=== PATIENT | male | born 1930 | race Caucasian/White ===

== ENCOUNTER 2017-12-13 15:53 | Inpatient (IN) | payer MEDICARE ==
[~2017-12-13] VITALS: Ht 175.3 cm; Wt 94.9 kg
[~2017-12-13 15:53] MED LIST: ACETAMINOPHEN500 MG PO; ALER PO; BACTRIM DS TAB1 EACH PO; CARDIZEM CD180 MG PO; CLARITIN10 MG PO; COUMADIN4 MG PO; DILTIAZEM HCL120 MG PO; FINASTERIDE5 MG PO; IRON325 M1 PO; LIPITOR20 MG PO; NAMENDA10 MG PO; VITAMIN B-650 M1 PO; WARFARIN SODIUM6 MG PO
[2017-12-13] MEDS ORDERED: FLOMAX0.4 MG PO (16:11)
--- NOTE | 2017-12-13 18:29 | EKG ---
[facility] [address] [facility] [place] [address] Signed Atrial fibrillation with premature ventricular or aberrantly conducted complexes Left axis deviation Pulmonary disease pattern Abnormal ECG No previous ECGs available Confirmed by ENOC BUTLER MD ([id number]) on 12/13/2017 6:29:07 PM Electronically Signed By: ENOC BUTLER MD 12/13/17 1829 PATIENT NAME: FELIPEZANE PJ Electrocardiogram DATE OF : [birth year] PHYSICIAN: ENOC BUTLER MD REPORT #: [id number] REPORT IS CONFIDENTIAL AND NOT TO BE RELEASED WITHOUT AUTHORIZATION
--- NOTE | 2017-12-13 19:56 | NUR ---
RECEIVED PT TO FLOOR VIA STRETCHER. PT IS DISORIENTED TO TIME, DATE AND PLACE. FACES ASSESSMENT IS 0. CALL LIGHT EDUCATION. ROOM ORIENTATION, BED ALARM IN PLACE.
--- NOTE | 2017-12-13 22:24 | NUR ---
ASSESSMENT COMPLETED. PT ON TELE # 7. HR IRREGULAR. LUNGS HAVE CRACKLES THROUGHOUT. 2+ PITTING EDEMA BILAT LE. PULSE +1 PEDIS AND RADIAL. CAP REFILL <3 SEC. PT HAS GARBLED SPEECH AND IS SLOW TO RESPOND. UNABLE TO ANSWER ALL QUESTIONS. BOWEL TONES ACTIVE. PT IS SL. CALL LIGHT WITHIN REACH. BED ALARM IN PLACE. ASSISTED PT TO STAND AT SIDE OF BED TO USE URINAL. 4L NC IN PLACE. RESPIRATIONS ARW EQUAL AND UNLABORED.
--- NOTE | 2017-12-14 00:12 | NUR ---
PT APPEARS TO BE SLEEPING. RESPIRATIONS EQUAL AND NONLABORED. 4L NC IN PLACE. TELE # 7. IRREGULAR RATE. HR IS 67. CALL LIGHT WITHIN REACH,. BED ALARM IN PLACE.
--- NOTE | 2017-12-14 02:00 | NUR ---
PT APPEARS TO BE SLEEPING. 4L NC IN PLACE. BED ALARM ON, CALL LIGHT WITHIN REACH. RESPIRATIONS EQUAL AND NONLABORED.
--- NOTE | 2017-12-14 02:46 | NUR ---
VITALS AND I&OS DONE AND CHARTED. BEDSIDE TABLE AND CALL LIGHT WITHIN REACH.
--- NOTE | 2017-12-14 04:27 | NUR ---
PT APPEARS TO BE SLEEPING. 4L NC IN PLACE. CALL LIGHT WITHIN REACH. BED ALARM ON. VISIBLE FROM NURSING STATION. HE 70. IRREGULAR HEART RATE.
--- NOTE | 2017-12-14 05:23 | NUR ---
PT CAME TO FLOOR LAST NIGHT. SLEPT THROUGHOUT THE NIGHT. CRACKLES THROUGHOUT. 2L O2. BED ALARM IN PLACE. PT IS CONFUSED. CARDIAC DIET. KNEES BUCKLE AND ARE WEAK. PT STOOD AT SIDE OF BED WITH URINAL. LABS THIS AM.
--- NOTE | 2017-12-14 05:57 | NUR ---
VITALS AND I&OS DONE AND CHARTED. HELPED SARAH TANG GET PT BACK TO BED FROM THE BATHROOM. PT VERY UNSTEADY. BED ALARM PUT ON. CALL LIGHT WITHIN REACH.
--- NOTE | 2017-12-14 06:51 | NUR ---
levaquin given. pt back to bed. had a coughing fit. elevated hob, gave vomitis bag. and tissue. able to cough up ome sputum and spit out. better now.. bed alarm in placve. call light within reach. visible form nursingf station.
--- NOTE | 2017-12-14 08:30 | NUR ---
PT HAS BASELINE DEMENTIA, CONFUSED AND OUT OF BED. RETURNED TO BED AND PLACED TELE LEADS, PLACED BED ALARM ON. PT DENIES SOB, NO DISTRESS. HELPED PT WITH BREAKFAST. PT UNABLE TO USE URINAL INDEPENDENTLY, ABLE TO URINATE WITH ASSIST. WILL CONTINUE TO MONITOR.
--- NOTE | 2017-12-14 10:00 | NUR ---
PT SITTING UP AT SIDE OF BED. PT PLEASANT, BUT UNABLE TO ANSWER QUESTIONS APPROPRIATELY. STATES HE LIVES WITH FAMILY. DOESN'T KNOW OTHER MORE DIRECT QUESTIONS. HAS A CANE IN THE ROOM. STAFF WILL LET ME KNOW WHEN FAMILY ARRIVES.
--- NOTE | 2017-12-14 10:37 | NUR ---
THIS PRODUCE CLERK ENTERED PATIENTS ROOM. PATIENT WAS STANDING IN BATHROOM ALONE, NO LIGHTS ON, OXYGEN TUBING WAS TIED TO BATHROOM DOOR. BED RAILS WERE UP. WHEN ASKED, PATIENT STATES HE TIED THE OXYGEN MASK, AND HE CRAWLED OVER THE BED RAILS BECAUSE HE HAD TO USE THE BATHROOM. PATIENT STATES HE DID NOT KNOW HOW TO CALL FOR HELP. RN NOTIFIED.
--- NOTE | 2017-12-14 11:00 | NUR ---
PT UP AT BEDSIDE AND BED ALARM NOT WORKING, REDIRECTED BACK TO BED. BED ALARM IS NOT WORKING, PLACED PRESSURE ALARM AND PT UP TO CHAIR. BED ALARM CALLED IN TO SERVICE.
--- NOTE | 2017-12-14 12:28 | NUR ---
PT HAS BEEN UP TO THE BATHROOM SEVERAL TIMES THIS MORNING, NOT CALL LIGHT APPROPRIATE. CHAIR ALARM IN PLACE. PT IS CONFUSED AND FORGETFUL. PT CONTINUES TO WEAR OXYGEN. REORIENTED PATIENT SEVERAL TIMES. PT EATING LUNCH INDEPENDENTLY, HR 70'S-80'S PER TELE. WILL CONTINUE TO MONITOR.
--- NOTE | 2017-12-14 12:59 | NUR ---
SPOKE AT LENGTH WITH SON DYLON AND STEFAN. PATIENT LIVES WITH THEM. THEY STATE HE HAS HAD DEMENTIA FOR OVER 6 YEARS AND THE LAST FEW MONTHS HE HAS [place]TON MARKEDLY WORSE. THEY STATE HE STILL KNOWS THEM, BUT CANNOT DO OWN ADL'S OR EVEN AMBULATE SAFELY. THEY HAVE A WALKER AND CANE. THEY STATE THEY ARE READY TO LOOK AT HIM MOVING TO A CARE FACILITY. THEY ARE HOPING TO GET HIM SITUATED SOMEWHERE IN THE [facility]. WE DISCUSSED THAT PATIENT MAY NEED REHAB STAY. THEY WOULD LIKE TO TRY [facility] WHICH IS [facility] FOR THEIR FAMILY. UPDATED DR BUTLER.
--- NOTE | 2017-12-14 14:00 | NUR ---
PT HAS HAD FAMILY AT BEDSIDE OFF AND ON THROUGHOUT THE AFTERNOON. PT HAS CONTINUE TO EXHIBIT CONFUSION, AND WILL GET UP OUT OF THE CHAIR. PT TRIED TO DRESS HIMSELF, AND NURSING STAFF DRESSED AND REORIENTED PATIENT. PT HAS TAKEN MEDICATIONS WITHOUT DIFFICULTY, AND HAS EATEN MEALS APPROPRIATELY. WILL CONTINUE TO MONITOR.
[2017-12-14] MEDS ORDERED: XALATAN2.5 ML OU (15:04)
--- NOTE | 2017-12-14 15:16 | NUR ---
MED REC COMPLETE
--- NOTE | 2017-12-14 15:48 | NUR ---
CLINICALS FAXED TO [facility] [phone]. FAX CONFIRMATION RECEIVED. MESSAGE LEFT FOR SHANT ADMITTING AT [phone].
--- NOTE | 2017-12-14 17:03 | NUR ---
CHANGED TELE BATTERY AND ALSO REMINDED HIM TO PUT HIS OXYGEN BACK ON SITTING IN CHAIR WITH CHAIR ALARM ON
--- NOTE | 2017-12-14 18:44 | NUR ---
PT HAS HAD A DIFFICULT TIME THIS SHIFT WITH CONFUSION AND HAS HAD TO BE REORIENTED SEVERAL TIMES. BED ALARM/CHAIR ALARM IN USE. LUNGS CRACKLES AND DIMINISHED BILATERALLY, AFEBRILE, NO EDEMA. PT HAS ATE WELL TODAY. OUTPUT CONSISTENT, ABLE TO USE URINAL WITH ASSIST. PT HAS REMOVED OXYGEN SEVERAL TIMES THIS SHIFT, SATS STABLE WHEN HE KEEPS IT IN PLACE.
--- NOTE | 2017-12-14 20:00 | NUR ---
RETURNED A CALL TO PATIENT'S GRAND-DAUGHTER SAVANNAH. SAVANNAH HAD BEEN TOLD BY A PREVIOUS VISITOR FROM [facility] THAT THE PATIENT'S HANDS WERE MOTTLED WHEN SHE CAME TO SEE THE PATIENT. THIS RN INFORMED SAVANNAH THAT I HAD JUST SEEN THE PATIENT AND HIS HANDS WERE NOT MOTTLED, HANDS WERE WARM, CAPILLARY REFILL WAS WNL, PATIENT HAD EQUAL [employer] BI DEVELOPER AND WAS FOLLOWING COMMANDS. SAVANNAH INFORMED ME SHE JUST WANTED TO CHECK. GRANDDAUGHTER IS ALSO LOOKING FOR A RESULT ON A CARDIAC ECHO. I INFORMED HER I HAD NOT SEEN A REPORT ON THE PATIENT'S ECHO AT THIS TIME, BUT WOULD LEAVE A NOTE FOR SOMEONE TO TRY AND CALL IF RESULTS CAME BACK. PATIENT CURRENTLY RESTING ON HIS RIGHT SIDE EYES CLOSED RESPIRATIONS EVEN AND REGULAR.
--- NOTE | 2017-12-14 21:36 | NUR ---
VITALS DONE AND CHARTED. BEDSIDE TABLE AND CALL LIGHT WITHIN REACH.
--- NOTE | 2017-12-14 22:58 | NUR ---
PATIENT VOIDED PER URINAL 150MLS WITHOUT DIFFICULTY AND IS NOW RESTING QUIETLY.
--- NOTE | 2017-12-15 01:00 | NUR ---
PATIENT ASSISTED TO USE THE URINAL AND VOIDED 150MLS. PATIENT IN NO PAIN AND HAS BEEN RESTING QUIETLY. BED ALARM IS ON AND PATIENT REMAINS PLEASANTLY CONFUSED AND FORGETFUL. CALL LIGHT IN REACH AND PATIENT'S BED IS DRY.
--- NOTE | 2017-12-15 01:23 | NUR ---
PATIENT FINISHED UP WITH A NEB TREATMENT PER RT AND IS AT 92% ON 22L/NC AT THIS TIME. PATIENT WAS 86% PRIOR TO NEB TREATMENT AND ON ROOM AIR. PULSE OX DID GET BETTER WITH THE NEB PUT STILL REQUIRED 2L/NC TO GET PATIENT ABOVE 90% SATURATION. NURSE INITIATED ORDERS FOR TITRATION OF O2 AND CONTINOUSD PULSE OX TO STAY ABOVE 90%.
--- NOTE | 2017-12-15 06:08 | NUR ---
PATIENT HAS SLEPT A FAIR AMOUNT THIS SHIFT. PATIENT HAS BEEN AWAKE X3 TONIGHT TO USE THE URINAL AND HE DOES THIS WELL WITH ASSISTANCE. PATIENT REPOSITIONED AND TURNED WHEN AWAKE. PATIENT REMAINS ON 4L/NC WITH DEMINISHED LUNG SOUNDS WITH FIND CRACKLES. BOWEL TONES ACTIVE. PATIENT DID STAND AT THE BEDSIDE X1 WITH 1 PERSON ASSIST TO SHUFFLE TOWARDS THE HEAD OF THE BED TO REPOSITION AND TOLERATED THIS WELL. PATIENT HAS NOT TAKEN IN MUCH FOR PO FLUIDS THIS SHIFT, BUT HAS NOT BEEN THIRSTY. IV FLUSHES WITHOUT DIFFICULTY AND PATIENT IS CURRENTLY SITTING UP IN BED WATCHING TV. CALL LIGHT IS IN REACH. PATIENT'S GRANDDAUGHTER SAVANNAH WOULD LIKE TO BE CALLED WHEN PATIENT'S ECHO REPORT COMES BACK. PHONE # IS [phone]. I WILL PASS THIS ON IN REPORT.
--- NOTE | 2017-12-15 08:30 | NUR ---
PT IN BED EATING BREAKFAST, FAMILY AT BEDSIDE, BED ALARM ON. NO DISTRESS. PT STATES HE WANTS TO "GO HOME". PT USING NC, SATS STABLE. PT FORGETFUL, CONFUSED, REORIENTED PATIENT. WILL CONTINUE TO MONITOR.
--- NOTE | 2017-12-15 14:50 | NUR ---
PT HAS BEEN REFUSING TO WEAR OXYGEN AND HAS REPEATEDLY ASKED TO GO HOME, PHYSICIAN AT BEDSIDE. REORIENTED PT AND OFFERED A WALK, PT GIVEN WALKER AND STAFF OFFERED REASSURANCE. PT WALKING IN HALLS WITH STAFF THIS AFTERNOON, WITH O2 NASAL CANNULA. TELE DISCONTINUED PER ORDERS.
--- NOTE | 2017-12-15 17:29 | NUR ---
PT IS SITTING IN A CHAIR WITH ALARM ON, LISTENING TO MUSIC AND READING THE PAPER QUIETLY. NO DISTRESS. WILL CONTINUE TO MONITOR.
--- NOTE | 2017-12-15 18:02 | NUR ---
PT HAS HAD SOME INCREASED CONFUSION AND HAS EXPRESSED A WANT TO GO HOME. PT VSS, NURSING STAFF HAS REINFORCED THE NEED FOR CARE AND THE NEED FOR NASAL CANNULA. PT HAS NOT EATEN AN ADEQUATE AMOUNT FOR BREAKFAST AND LUNCH BUT DID EAT A FULL DINNER. BED ALARM AND CHAIR ALARM IN USE.
--- NOTE | 2017-12-15 19:31 | NUR ---
PT RESTING IN BED ON RIGHT LATERAL SIDE. APPEARS TO BE SLEEPING COMFORTABLY IN VIEW OF NURSING STATION.
--- NOTE | 2017-12-15 21:09 | NUR ---
CHARGE NURSE ROUNDING NOTE: PT RESTING, O24LNC IN PLACE, NO SOB. BED ALARM ON, HIGH FALL PRECAUTION IN PLACE.NO S/SX DISTRESS. CALL LIGHT AND FLUIDS WITHIN HANDS REACH. PT ACROSS FROM NSG STATION
--- NOTE | 2017-12-15 21:20 | NUR ---
PT RESTING IN BED, RESPIRATIONS EVEN AND UNLABORED, EYES CLOSED, PT ALERT TO VOICE AND PT TAKES FLOMAX PO. ASSESSMENT PERFORMED AND PT DENIES NEEDS AT THIS TIME. PT APPEARS COMFORTABLE, CALL LIGHT IN REACH.
--- NOTE | 2017-12-15 21:23 | NUR ---
RESTING, ON ROOM, AIR, LEGS DANGLING. NO RESP DISTRESS, NO S/SX PAIN. TELE#[address], LEFT ARM CAST INPLACE. IVF INFUSING, BED ALARM ON, PT ACROSS FROM NSG STATION. HIGH FALL RISK PROTOCOL IN PLACE
--- NOTE | 2017-12-16 00:50 | NUR ---
pt attempting to get up out of bed. pt states "i got to pee". Pt assisted to up bedside to use urinal with standby assist. pt voids approx 100mls clear yellow urine in urinal and pt transfered to bedside commode per pt request. pt voids a small amount in commode before he was further assisted back into bed. Pt required frequent direction during transfer to/from commode. pt changed into clean attends and provided with warm blanket. Bed alarm on and pt within view of nurses station.
--- NOTE | 2017-12-16 03:04 | NUR ---
PT RESTING IN BED, RESPIRATIONS EVEN AND UNLABORED AT 20 ON 4LPNC. CALL LIGHT IN REACH, BED ALARM ON AND PT APPEARS TO BE SLEEPING COMFORTABLY.
--- NOTE | 2017-12-16 05:38 | NUR ---
pt has slept most of the night. pt did attemtpt to get up out of bed several times without using call light, each time pt was pleasantly confused and was reoriented to place/situation and to call light. Each time pt attempted to get out of bed he states he needed to use restroom and was assisted to commode to void. pt has expressed that he would like to go home soon.
--- NOTE | 2017-12-16 08:30 | NUR ---
PT UP TO CHAIR FOR BREAKFAST THIS AM. PT IS CONFUSED AND HAS BEEN REORIENTED SEVERAL TIMES. PT STATES HE DOESN'T FEEL WELL BUT CANNOT GIVE A REASON WHY, DENIES SOB. USING NASAL CANNULA, AND UP WITH WALKER AND ASSIST.
--- NOTE | 2017-12-16 08:34 | NUR ---
CHANGED BED LINENS. GOT HIM A CUP OF CRANBERRY JUICE. PATIENT IS SITTING IN HIS CHAIR LISTENING MUSIC.
--- NOTE | 2017-12-16 12:00 | NUR ---
PT VISITING WITH FAMILY FRIEND AT BEDSIDE. PT HAS CHAIR ALARM IN PLACE AND HAS BEEN UP WITH WALKER WITH ASSIST. WILL CONTINUE TO MONITOR.
--- NOTE | 2017-12-16 15:55 | NUR ---
PT GRANDDAUGHTER AND OTHER FAMILY AT BEDSIDE. GAVE A FULL UPDATE TO FAMILY ABOUT PLAN OF CARE AND MEDICAL STATUS. PT RETURNED TO BED, BED ALARM ON, PT GIVEN WARM BLANKETS AND IS RESTING COMFORTABLY. WILL CONTINUE TO MONITOR.
--- NOTE | 2017-12-16 18:13 | NUR ---
PT HAS HAD BASELINE CONFUSION THROUGHOUT SHIFT. PT MOOD IMPROVED SIGNIFICANTLY WHEN FAMILY WAS PRESENT THIS AFTERNOON. PT LUNG SOUNDS ARE UNCHANGED, DIMINISHED WITH DRY COUGH. PT USING OXYGEN. BED ALARM IN PLACE. PT HAS BEEN DIRECTABLE BUT FORGETFUL.
--- NOTE | 2017-12-16 20:47 | NUR ---
uP TP BRP, VOIDED, BACK TO BED. 2 PERSON ASSIST AND FWW. TOLERATED WELL. O2 ON AT 4L NC. NO C/O PAIN. BACK TO BED, BED ALARM ON. HIGH FALL RISK PRECAUTIONS ON
--- NOTE | 2017-12-16 22:30 | NUR ---
UP TO BSC, VOIDED SNMALL AMOUNTS YELLOW URINE. TWO PERSON ASSIST AND FWW. TOLERATED WELL, BACK TO BED, TAKS O2 TUBING OFF NARE, REPOSITIONED BACK TO NOSE. COOPERATIVE, NO C/O SOB STATED OR NOTED
--- NOTE | 2017-12-17 01:32 | NUR ---
Up to brp with one assist and fww, voided, back to bed. O2 on 4L NC, tolerated well. was very cooperative. Bed alarm on.
--- NOTE | 2017-12-17 05:16 | NUR ---
PT CURRENTLY IN BED, RESTING, EYES CLOSED, O2 4LNC WITH HUMIDIFIER IN PLACE, NO S/SX SOB. uP TO BRP, SEVERAL TIMES WITH ONE PERSON ASSIST AND FWW. HAS VOIDED, NO BM THIS SHIFT. PT CONFUSED AT TIMES, EASILY REDIRECTABLE, DOES NOT USE CALL LIGHT. CONTINUES ON DAILY WEIGHT . CURRENTLU WEIGHT IS 223.1#, STANDING SCALE, AN INCREASE OF ALMOST 2# SINCE YESTERDAY. TOLERATES FLUIDS WELL, NO COUGH PRESENT, EDEMA OF LEGS SLOWLY IMPROVING, LEGS ELEVATED. CALL LIGHT AND FLUIDS WITHING HAND REACH. HIGH FAL RISK PROTOCOL IN PLACE, BED ALARM ON, RAILS UPX3
--- NOTE | 2017-12-17 05:42 | NUR ---
up to brp, alarm gfoing off. up to brp with one assist and fww, voided and had large soft-formed bm. back to bed. tolerated well. no sob with exertion noted. O2 4L NC with humidifier inplace. Bed alarm on, Coop with lab draw. Call light and fresh fluid withing hands reach
--- NOTE | 2017-12-17 07:18 | NUR ---
PT IN BED, AWAKE, ALERT. RECIEVED BEDSIDE REPORT FROM SARAH TANG. BED ALARM ON, PERSONAL SUPLIES AND CALL LIGHT IN REACH.
--- NOTE | 2017-12-17 09:13 | NUR ---
PT SITTING UP IN RECLINER, VISITING WITH FRIEND. PT ALERT, BUT DISORIENTED TO ALL EXCEPT HIS FRIEND. ABLE TO RECALL FRIEND'S NICKNAME, AND ALSO RECALL HOW THEY MET. PT DENIED PAIN. PERSONAL SUPPLIES IN REACH. PROVIDED EDUCATION REGARDING DEEP BREATHING AND COUGHING, WHICH PT RETURN DEMONSTRATED. ALSO PROVIDED EDUCATION VERBALLY REGARDING FALL PREVENTION, USE OF CALL LIGHT, NEED TO WAIT FOR NURSING STAFF TO BE WITH HIM PRIOR TO ANY TRANSFERS, ANY TIME THAT HE IS NOT SITTING OR LAYING DOWN. PT VERBALIZED UNDERSTANDING. PT UNABLE TO RETURN DEMONSTRATE USE OF CALL BUTTON UNTIL 3 VERBAL CUES WERE GIVEN. CHAIR ALARM ON. PT DENIED NEEDS.
--- NOTE | 2017-12-17 09:30 | NUR ---
MESSAGE LEFT FOR SON DYLON WANG AT [phone] FOR CALL BACK REGARDING DISCHARGE PLAN.
--- NOTE | 2017-12-17 10:09 | NUR ---
NOTIFIED DR. BUTLER THAT PT'S URINE OUTPUT IN LAST 4 HOURS WAS [address] BUTLER GAVE NO NEW ORDERS AT THIS TIME.
--- NOTE | 2017-12-17 10:25 | NUR ---
PT WAS SITTING UP IN RECLINER, READING NEWSPAPER. PT THEN STOOD UP FROM CHAIR WITHOUT CALLING FOR ASSISTANCE, CHAIR ALARM SOUNDED, DARRIAN BARKSDALE TO ROOM, TO PT'S SIDE IMEDIATELY. DARRIAN BARKSDALE ASSISTING PT TO BATHROOM. PT REMINDED TO USE CALL LIGHT.
--- NOTE | 2017-12-17 12:46 | NUR ---
SPOKE WITH PATIENT IN ROOM. PATIENT KAW AND HAD SOME UNDERLYING DEMENTIA. BUT ANSWERS QUESTIONS APPROPRIATELY. PATIENT ORIENTED TO PERSON, PLACE. HE IS NOT SURE WHEN HIS FAMILY MIGHT BE IN. DISCUSSED POSSIBLE STAY AT REHAB BEFORE RETURNING TO HOME. HE SEEMS AWARE OF THIS, STATES "I GUESS SO". PATIENT STATES I SHOULD TALKE WITH "BUD".
--- NOTE | 2017-12-17 12:52 | NUR ---
ATTEMPTED TO CALL PATIENTS MICKIE OSBORNE AT . MESSAGE LEFT FOR CALL BACK.
--- NOTE | 2017-12-17 12:58 | NUR ---
RECEIVED A CALL FROM [facility]. THEY HAVE NO OPENINGS FOR ADMITS AT THIS TIME.
--- NOTE | 2017-12-17 13:16 | NUR ---
PT UP IN W/C, BY NURSES' STATION, WITH DARRIAN REN AT SIDE.
--- NOTE | 2017-12-17 14:09 | NUR ---
PT SITTING UP IN CHAIR, LUNCH ON TRAY IN FRONT OF HIM. HE DIDN'T SEEM TO BE AWARE IT WAS THERE, AND HIS COGNITIVE ABILITIES SEEM TO BE DIMINISHED FROM LAST WEEK. HE WAS HAVING A DIFFICULT TIME TRYING TO CONNECT WHO I AM AND MY TITLE. I ENCOURAGED HIM TO EAT SOME LUNCH, SAID HE TRIED TO GET ONE OF THE STAFF TO EAT IT. THEN HE TRIED TO GET UP, HIS SLIPPERS WERE SLICK AND WAS MAKING IT DIFFICULT FOR PT TO GET TRACTION TO STAND UP. SALES OFFICE ASSISTANT CAME IN AND HE ASKED FOR HIS WALKER AND HEADED FOR BATHROOM WITH ASSIST FROM DARRIAN. WILL BE AVAILABLE TO FOLLOW NEEDED
--- NOTE | 2017-12-17 14:15 | NUR ---
ASKED BY STAFF TO SPEAK WITH A FACILITY THAT CALLED. SPOKE WITH ALBARO BILLINGSLEY. SHE STATES FAMILY IS THERE NOW. THEY ARE A ASSISTED LIVING FACILITY IN [place]. SHE WAS GIVEN AN UPDATE ON PATIENT. SHE STATES IT SOUNDS LIKE HE SHOULD DO REHAB BEFORE MOVING THERE. DISCUSSED THAT THIS WAS THE PLAN SUNDAY, AND IS THE DOCTORS PLAN. I ALSO SPOKE WITH PATIENT THIS MORNING AND HE SEEMS TO UNDERSTAND THIS. EXPLAINED THAT I LEFT MESSAGE ON SONS PHONE TO CALL ME IN REGARDS TO THIS PLAN. SHE STATES SHE WILL SPEAK WITH FAMILY, THEY ARE CURRENTLY AT THEIR FACILITY.
--- NOTE | 2017-12-17 16:15 | NUR ---
RECEIVED A MESSAGE FROM PARUL MAGUIRE [facility] [phone]. RETURNED THE CALL. SPOKE WITH KP SMITH. SHE STATES FAMILY WAS ADVISED BY HER THAT REHAB STAY WOULD HELP, BUT THEY DO NOT WANT TO HAVE TO MOVE HIM A SECOND TIME. THEY HAVE ARRANGED FOR PATIENT TO MOVE IN THERE ON SUNDAY. EXPLAINED THAT PATIENT WILL BE DISCHARGED HERE TOMORROW. HE HAS BEEN ACCEPTED AT [facility] IN [place]. IF THEY REFUSE THAT, THEY CAN TAKE HIM HOME UNTIL ADMITTING THERE. SHE STATES THE ONLY THING THEY NEED IS CLINICALS ORDERS FOR OXYGEN, ORDERS FOR PT/OT HOME HEALTH, AND MEDICATION PRESCRIPTIONS. THESE CAN BE FAXED TO [phone] GUPTA AND STAFF.
--- NOTE | 2017-12-17 17:38 | NUR ---
ATTEMPTED AGAIN TO SPEAK WITH SON DYLON WANG CALLING [phone]. MESSAGE LEFT THAT PATIENT WILL BE DISCHARGED IN THE MORNING. FOR HIM TO CALL THE NURSES DESK OR THE CASE MANAGEMENT LINE IN THE MORNING. CONTACT NUMBERS LEFT.
--- NOTE | 2017-12-17 18:33 | NUR ---
NOTED THAT INSERTION SITE REDDENED SLIGHTLY. PT DENIED PAIN AT INSERTION SITE WITH PALPATION AND WITHOUT. NOTIFIED DR. BUTLER, REQUESTED ORDER TO LEAVE IV OUT, DR. BUTLER STATED THAT IT WAS OK TO LEAVE IV OUT.
--- NOTE | 2017-12-17 18:38 | NUR ---
PT UP WITH 1 PERSON ASSIST WITH FWW. REMAINS DISORIENTED TO ALL EXCEPT SELF AND FRIEND. LUNGS DIMINISHED TO DIMINISHED WITH FINE CRACKLES IN BASES. REMAINS ON 4L O2 VIA NC. TOLERATING PO INTAKE WELL. USED BED AND CHAIR ALARM ALL SHIFT, PT CONTINUES TO GET UP WITHOUT CALLING FOR ASSISTANCE. IV D/C'D PER DR. BUTLER.
--- NOTE | 2017-12-17 19:15 | NUR ---
PT IS AWAKE IN THE CHAIR WITH CHAIR ALARM ON HE DENIES NEEDS AT THIS TIME. CALL LIGHT IS WITHIN REACH.
--- NOTE | 2017-12-17 20:27 | NUR ---
IN ROOM TO ASSESS PT AND ADMINISTER MEDICATION. PT HAS DEMENTIA AND IS FORGETFUL BUT HE IS AWARE AT THIS TIME THAT HE IS AT THE HOSPITAL AND HE CAN STATE HIS NAME AND . HE DENIES PAIN AND ANY NEEDS AT THIS TIME. CALL LIGHT IS WITHIN REACH AND BED ALARM IS ON. HE WAS JUST UP TO THE RESTROOM.
--- NOTE | 2017-12-17 23:21 | NUR ---
PT IS RESTING WITH EYES CLOSED, RESPIRATIONS ARE EVEN AND NONLABORED. BED ALARM IS ON AND CALL LIGHT IS WITHIN REACH.
--- NOTE | 2017-12-18 01:09 | NUR ---
PT WAS UP TO RESTROOM AND BACK TO BED. DIESEL BUS MECHANIC REPORTED PT TRIED TO HAVE A BM AND THERE WAS SLIGHT SMEARS OF BLOOD ON TOILET PAPER. WILL CONTINUE TO MONITOR.
--- NOTE | 2017-12-18 02:48 | NUR ---
PT IS RESTING WITH EYES CLOSED, RESPIRATIONS ARE EVEN AND NONLABORED ON 4 LNC. CALL LIGHT IS WITHIN REACH AND BEDALARM IS ON.
--- NOTE | 2017-12-18 04:49 | NUR ---
PT IS RESTING WITH EYES CLOSED, RESPIRATIONS ARE EVEN AND NONLABORED. BED ALARM IS ON.
--- NOTE | 2017-12-18 04:54 | NUR ---
PT IS ORIENTED TO SELF AND THE FACT THAT HE IS IN THE HOSPITAL. HE IS A SBA WITH FWW AND REQUIRED A BED OR CHAIR ALARM HE DOES NOT USE THE CALL LIGHT PROPERLY. HE IS ON 4LNC AND HAS NO IV SITE. PER NOTES PT LIVES WITH SON.
--- NOTE | 2017-12-18 06:17 | NUR ---
PT IS RESTING WITH EYES CLOSED, RESPIRATIONS ARE EVEN AND NONLABORED. CALL LIGHT IS WITHIN REACH AND BED ALARM IS ON.
--- NOTE | 2017-12-18 06:45 | NUR ---
HELPED PT TO THE RESTROOM AND BACK TO BED. BEDALARM ON AND CALL LIGHT WITHIN REACH.
--- NOTE | 2017-12-18 07:00 | NUR ---
BEDSIDE HANDOFF REPORT RECEIVED FROM SURGICAL LEAD RN. PT RESTING IN BED. PT DENIES NEEDS AT THIS TIME.
--- NOTE | 2017-12-18 09:25 | NUR ---
PT RESTING IN BED SLEEPING. PT ON 4L NC, O2 SATS 88-91%, LUNG SOUNDS CLEAR UPPER WITH CRACKLES TO BILATERAL LOWER LOBES, DENIES SOB. PT DENIES PAIN, DENIES NAUSEA. PT CONFUSED, DISORIENTED TO ALL BUT SELF. PT BOWEL TONES ACTIVE. EDEMA TO BLE, 2+, PULSES PALPABLE, CMS INTACT. PT WITHOUT IV ACCESS. PT ENCOURAGED TO GET TO CHAIR FOR BREAKFAST, AGREEABLE, 1PA TO CHAIR, CHAIR ALARM ON, CALL LIGHT WITHIN REACH. PT DENIES OTHER NEEDS AT THIS TIME.
--- NOTE | 2017-12-18 10:52 | NUR ---
IV PLACED BY SARAH JONES TO RIGHT FOREARM. IV LASIX GIVEN. CONTINUOUS PULSE OX IN PLACE, O2 SATS 96% ON 3L. PT SITTING IN CHAIR, BED ALARM ON. FLUID RESTRICTION STARTED.
--- NOTE | 2017-12-18 11:55 | NUR ---
PT ASSISTED TO BATHROOM AND BACK TO BED. CHAIR ALARM IN PLACE. PT DENIES OTHER NEEDS AT THIS TIME.
--- NOTE | 2017-12-18 14:00 | NUR ---
PT FAMILY AT BEDSIDE, REQUESTING UPDATE. UPDATE PROVIDED ON ECHO RESULTS, LAB RESULTS, PLAN OF CARE AND EXPECTED LENGTH OF STAY. QUESTIONS ANSWERED. FAMILY AND PT DENY OTHER NEEDS AT THIS TIME.
--- NOTE | 2017-12-18 14:45 | NUR ---
PT RESTING IN CHAIR, FAMILY AT BEDSIDE. PT ON 3L NC, O2 SATS 95%, WEANED TO 2L NC, LUNG SOUNDS CLEAR WITH CRACKLES TO RIGHT LOWER LOBE. EDEMA TO BLE SLIGHTLY IMPROVED. PT CONTINUES TO BE DISORIENTED TO ALL BUT SELF. NO ACUTE CHANGES. PT AND FAMILY DENY OTHER NEEDS AT THIS TIME. IV LASIX GIVEN.
--- NOTE | 2017-12-18 14:50 | NUR ---
RECIEVED A PHONE CALL FROM PT GRANDDAUGHTER SAVANNAH THIS AM REQUESTING THAT SHE AND THE FAMILY WOULD LIKE THE PT TO GO TO A SNF FOR PT PRIOR TO GOING TO THE [facility], THEY DO STATE THAT THEY DO NOT WANT HIM GOING TO [facility] IN [place]--WHICH IS WHERE PREVIOUS PLANS HAD BEEN MADE AND THEY HAD A BED FOR HIM. I NOTIFIED [facility] IN [place] THAT THE FAMILY HAD SAID NO TO THEIR FACILITY. I THEM CALLED [facility] IN [place] AND [facility] [place]. [facility] IN [place] CALLED ME BACK AND STATED THEY HAD A BED AVAILABLE AND WOULD BE GLAD TO TAKE HIM WHEN HE IS READY. CALLED AND TALKED TO SAVANNAH AGAIN AND SHE SAID SHE COULD TAKE HIM THERE WHEN HE IS READY TO GO TO THIS FACILITY. DR GUPTA CALLED A SHORT TIME AFTER THIS AND STATED THAT HE DIDN'T THINK THE PT WAS READY TO GO ANYWHERE YET AND THAT IT WOULD BE ANOTHER DAY OR SO TO DIURESE PT A LITTLE MORE AND HOPEFULLY GET HIS NEED FOR O2 DOWN FROM 4 LITERS. INFORMED THE FAMILY OF THIS.
--- NOTE | 2017-12-18 15:00 | NUR ---
CARE CONFERENCE ATTENDEES: PT, SON DYLON, GRANDDAUGHTER SAVANNAH, GREAT GRANDDAUGHTER. STAFF: MYSELF CASE MANAGEMENT, SAM SMITH, SUMMER CHW DISCUSSION WAS HAD REGARDING FUTURE PLANS FOR THE PT TO GO TO AN ASSISTED LIVING FACILITY IN [facility], BUT FIRST THE FAMILY AGREE PT NEEDS TO GO TO A SNF. THEY AGAIN STATED THAT THEY DIDN'T WANT HIM GOING TO [facility] IN [place]. I INFORMED THEM AGAIN THAT ARRANGEMENTS HAD BEEN MADE WITH [facility] [place] THE [place] IN [place] FOR WHEN HE IS READY FOR DC. FAMILY STATED THAT THEY HAD BEEN THERE ALREADY, SEEN THE FACILITY. PT WATCHING THE CONVERSATIONS ARE GOING ON BUT NOT CONTRIBUTING ANYTHING.
--- NOTE | 2017-12-18 15:30 | NUR ---
PT ASSISTED TO BATHROOM AND BACK TO BED, BED ALARM IN PLACE.
--- NOTE | 2017-12-18 16:25 | NUR ---
PT GIVEN 6 MG COUMADIN PER ORDER. PT ASSITED TO BATHROOM WITH NURSE AIDE. PT DENIES OTHER NEEDS AT THIS TIME.
--- NOTE | 2017-12-18 17:32 | NUR ---
PT WEANED TO 2L NC, CONTINUOUS PULSE OX, LUNG SOUNDS WITH CRACKLES TO RIGHT LOWER LOBE. IV PLACED TODAY FOR IV LASIX. PT TOLERATING REGULAR DIET, FLUID RESTRICTION BEGAN. PT CONTINUES TO BE DISORIENTED TO ALL BUT SELF. UP WITH 1PA WITH FWW, BED ALARM/CHAIR ALARM. PT VOIDING QS, HAD BM TODAY.
--- NOTE | 2017-12-18 19:11 | NUR ---
IN ROOM FOR REPORT, PT IS RESTING WITH EYES CLOSED ON 2LNC AND CONT PULSEOX. CALL LIGHT IS WITHIN REACH AND BEDALARM IS ON.
--- NOTE | 2017-12-18 22:05 | NUR ---
HELPED PT TO THE RESTROOM AND ASSESSED HIM. HE IS ORIENTED TO SELF AT THIS TIME. HE REQUIRES THE USE OF THE BED ALARM. HE IS PLEASANT AND COOPERATIVE OTHER THAN NOT USING THE CALL LIGHT APPROPRIATELY. HE DENIES PAIN OR ANY NEEDS AT THIS TIME. HIS MEDICATION WAS ADMINISTERED. CALL LIGHT IS WITHIN REACH AND BEDALARM IS ON.
--- NOTE | 2017-12-18 22:16 | NUR ---
PT FELL ALSEEP AND IS BREATHING THROUGH MOUTH PULSEOX DROPED TO LOW 80S. PUT OXYMASK ON PT AND HE IS AT 6L TO GET O2 UP TO 91%. WILL CONTINUE TO MONITOR.
--- NOTE | 2017-12-18 23:17 | NUR ---
TURNED PT'S O2 VIA OXYMASK TO 4 L, PULSEOX READS 91%, PT IS RESTING WITH EYES CLOSED, AND BED ALARM IS ON.
--- NOTE | 2017-12-19 00:24 | NUR ---
PT IS RESTING WITH EYES CLOSED, RESPIRATIONS ARE EVEN AND NONLABORED ON 4L OXYMASK. BED ALARM IS ON AND CALL LIGHT IS WITHIN REACH.
--- NOTE | 2017-12-19 01:32 | NUR ---
PT WAS HELPED TO RESTROOM AND IS BACK IN BED.
--- NOTE | 2017-12-19 02:50 | NUR ---
PT IS RESTING WITH EYES CLOSED, RESPIRATIONS ARE EVEN AND NONLABORED. ON 4L OXYMASK, BED ALARM IS ON.
--- NOTE | 2017-12-19 04:09 | NUR ---
PT IS RESTING WITH EYES CLOSED, RESPIRATIONS ARE EVEN AND NONLABORED ON 4L OXYMASK. BED ALARM IS ON.
--- NOTE | 2017-12-19 04:19 | NUR ---
PT SLEPT MOST OF THE NIGHT WITH THE EXCEPTION OF BATHROOM BREAKS. BED ALARM ON. HE STARTED THE NIGHT WITH 2 LNC BUT WHILE SLEEPING REQUIRED 4 L OXYMASK. CONT PULSEOX ON AND IV IS SL. REGULAR DIET WITH FLUID RESTRICTION. PT CONTINUES TO BE CONFUSED AND ORIENTED TO PERSON BUT HE IS PLEASANT. SBA WITH FWW.
--- NOTE | 2017-12-19 05:43 | NUR ---
PT IS RESTING WITH EYES CLOSED, RESPIRATIONS ARE EVEN AND NONLABORED ON 4 L OXYMASK. BED ALARM IS ON.
--- NOTE | 2017-12-19 07:00 | NUR ---
BEDSIDE HANDOFF REPORT RECEIVED FROM UNDER SEAL OPERATOR RN. PT SLEEPING, LEFT UNDISTURBED. O2 SATS 94% ON 4L OXYMASK.
--- NOTE | 2017-12-19 08:30 | NUR ---
PT SITTING IN CHAIR, EATING BREAKFATS, FRIEND AT BEDISDE. PT O2 SATS 92% ON 3L NC, LUNG SOUNDS CONTINUE TO HAVE CRACKLES TO BILATERL BASES. PT TOLERATING REGULAR DIET WITH FLUID RESTRICITON, BOWEL TONES ACTIVE, DENIES NAUSEA. PT SALINE LOCKED, FLUSHED, PATENT. PT CMS INTACT, EDEMA IMRPOVED FROM YESTERDAY, 2+. PT DENIES OTHER NEEDS AT THIS TIME, CHAIR ALARM IN PLACE.
--- NOTE | 2017-12-19 09:05 | NUR ---
THIS CONVEYOR LINE BAKERY WORKER ASSISTED PATIENT TO SIT UP IN BED. PATIENT HAD NO OXYMASK ON WHEN ENTERING, OXYGEN LEVELS APPEARED LOW. RN NOTIFIED, PATIENT BACK ON OXYMASK, OXYGEN BACK UP TO NORMAL LEVELS. THIS CONVEYOR LINE BAKERY WORKER ASSISTED PATIENT TO STAND FOR WEIGHT, AND TO WALK TO BEDSIDE RECLINER. PATIENT SITTING UP IN BEDSIDE RECLINER, EATING BREAKFAST. FAMILY IN ROOM. PATIENT CALL LIGHT IN REACH. NO OTHER NEEDS AT THIS TIME.
--- NOTE | 2017-12-19 10:21 | NUR ---
THIS ENGINEERING TECHNICAL WRITER ASSISTED PATIENT UP FROM BATHROOM. PERICARE PERFORMED. PATIENT BACK IN BEDSIDE RECLINER, CALL LIGHT IN REACH, FAMILY IN ROOM. CHAIR ALARM ON. NO OTHER NEEDS AT THIS TIME.
--- NOTE | 2017-12-19 10:48 | NUR ---
PT SITTING IN CHAIR, FAMILY AT BEDSIDE. PT GIVEN IV DIURETICS AND PO POTASSIUM. PT DENIES NEEDS AT THIS TIME.
--- NOTE | 2017-12-19 14:35 | NUR ---
PT SITTING IN CHAIR, LISTENING TO MUSIC ON CD PLAYER. HE WAVED ME IN, AND CON- FUSED ME WITH THE DR. HE STUDIED MY BADGE, AND BEGAN TO TALK, BUT STATEMENTS MADE LITTLE SENSE. COGNITIVE ABILITIES SEEM TO BE DECREASING, PT ASKED FOR A CUP OF COFFEE. MENTIONED TO RN COLLIN ALEX, WHO MENTIONED HE IS ON FLUID RESTRICTION. WILL CONTINUE TO FOLLOW NEEDED
--- NOTE | 2017-12-19 14:45 | NUR ---
PT RESTING IN BED. PT ON 2L NC, LUNG SOUNDS CONTINUE TO HAVE CRACKLES IN BILATERAL BASES. EDEMA TO BLE SIGNIFICANTLY IMPROVED, CONCENTRATED AROUND ANKLES. NO ACUTE CHANGES. PT DENIES NEEDS AT THIS TIME. BED ALARM IN PLACE.
--- NOTE | 2017-12-19 15:30 | NUR ---
PT FAMILY AT BEDSIDE, REQUESTING TO SPEAK WITH DR. GUPTA REGUARDING TRANSFER TO A FACILITY WITH CARDIOLOGY. DISCUSSED WITH DR. GUPTA, DR. GUPTA STATES THAT HE HAD CONVERSTATION WITH GRANDDAUGHTER SAVANNAH THIS AM AND REQUESTED RN TO REITERATE WHAT WAS DISCUSSED THIS AM AND TO OBTAIN PHONE NUMBER OF [id number] IN [place]. DISCUSSED WITH SON, TREATMENT PLAN, PT CONDITION AND TRAETMENT AFTER DISCHARGE, SON STATES THAT THEY FEEL THEY ARE GETTING A LOT OF INFORMATION FROM VARIOUS FAMILY MEMBERS WHICH IS CONFUSING, PHONE NUMBER FOR DELFINO LANDAVERDE, GRANDDAUGHTER IN [place], WAS OBTAINED AND PROVIDED TO DR. GUPTA.
--- NOTE | 2017-12-19 16:03 | NUR ---
THIS BACKEND TESTER ASSISTED PATIENT UP TO BATHROOM, BACK TO BEDSIDE RECLINER. BARRIER CREAM AND PERICARE APPLIED. CALL LIGHT IN REACH. CHAIR ALARM ON. NO OTHER NEEDS AT THIS TIME.
--- NOTE | 2017-12-19 17:29 | NUR ---
PT CONTINUES TO BE DISORIENTED TO ALL BUT SELF, BED ALARM/CHAIR ALARM. PT CONTINUES TO HAVE CRACKLES TO BILATER LOWER LOBES, CONTINUOUS PULSE OX, PT DOES REMOVE AT TIMES. PT TOLERATING REGULAR DIET WITH 1600 ML FLUID RESTRICTION, HAD TO LIMIT INTAKE TODAY. PT GIVEN IV LASIX 2 AND ACETAZOLAMIDE, VOIDED QS. PT UP WITH SBA WITH FWW. PT HAD BM TODAY.
--- NOTE | 2017-12-19 17:43 | NUR ---
PATIENT RESTING IN BED, CALL LIGHT IN REACH. BED ALARM ON. NO OTHER NEEDS AT THIS TIME
--- NOTE | 2017-12-19 19:12 | NUR ---
PT AMBULATED WITH RN TO TOILET WITH WALKER, VOIDED OUTSIDE OF TOILET HAT, UNABLE TO MEASURE
--- NOTE | 2017-12-19 20:20 | NUR ---
PATIENT AMBULATED WITH 1PSBA AND FWW TO THE BATHROOM AND VOIDED IN THE HAT. PATIENT AMBULATED THE SAME BACK TO BED AND BED ALARM WAS SET. PATIENT THEN GOT UP AND STARTED HEADING TOWARD THE DOOR, TALKED WITH THE PATIENT TRIED TO REORIENT HIM AND HAVE HIM SIT BACK DOWN. PATIENT DOES NOT WANT TO BE IN BED AND DOES NOT WANT TO SIT IN THE RECLINER. TRIED TO OFFER FOOD, FLUIDS, WARM BLANKET, FIND SOMETHING ON TV FOR HIM. PATIENT INSISTS ON LEAVING. CALLED FOR ADDITIONAL ASSISTANCE AND GOT PATIENT TO SIT BACK DOWN IN THE BED. CHARGE NURSE TRYING TO GET PATIENT TO SETTLE DOWN AND IS SITTING WITH HIM AT THIS TIME.
--- NOTE | 2017-12-19 20:47 | NUR ---
CALLED TO INFORM HIM PATIENT HAS HAD TO KEEP AN RN AT BEDSIDE SINCE MY LAST NOT, PATIENT IS INSISTANT ON GETTING UP AND LEAVING. SARAH VILLASENOR, AT BEDSIDE WITH THE PATIENT AT THIS TIME. DR. GUPTA REQUESTED I CONTACT THE RN PAPER CUTTING MACHINE OPERATOR TO GET A 1:1 SITTER IF THAT WAS POSSIBLE HE DID NOT WANT TO GIVE THE PATIENT ANY NEW MEDICATION AT THIS TIME IF IT IS POSSIBLE. CALLED SARAH YATES PAPER CUTTING MACHINE OPERATOR AND SHE WILL BE CALLING DR. GUPTA BACK.
--- NOTE | 2017-12-19 21:55 | NUR ---
PATIENT IS RELAXING BETTER AT THIS TIME AND IS IN BED. RN IS AT THE BEDSIDE VISITING WITH PATIENT AT THIS TIME. PATIENT IS WATCHING TV AND CONVERSING WITH RN AT THIS TIME.
--- NOTE | 2017-12-19 22:14 | NUR ---
PT RESTING COMFORTABLY IN BED. PT DELCINES ANY NEEDS. PLEASANT AND SLEEPY.
--- NOTE | 2017-12-19 22:39 | NUR ---
PT ASSISTED TO BATHROOM VIA 1PA. BACK IN BED. PT ASLEEP.
--- NOTE | 2017-12-19 23:28 | NUR ---
PATIENT RESTING QUIETLY IN HIS BED. EYES CLOSED, RESPIRATIONS EVEN AND REGULAR. CALL LIGHT IN REACH.
--- NOTE | 2017-12-20 00:15 | NUR ---
PATIENT UP TO THE BATHROOM WITH 1PSBA AND FWW AND THEN BACK TO BED WITH ASSISTANCE FROM STAFF. PATIENT BACK IN BED AND CALL LIGHT IN REACH.
--- NOTE | 2017-12-20 02:01 | NUR ---
PATIENT RESTING QUIETLY SUPINE WITH HEAD OF THE BED ELEVATED AT ABOUT 25 DEGREES. EYES ARE CLOSED, RESPIRATIONS EVEN AND REGULAR AT A RATE OF 16BPM. PULSE OX READS 93% AND PATIENT CURRENTLY ON 2L/NC. HR PER PULSE OX IS 72BPM. PATIENT'S CALL LIGHT IS IN REACH.
--- NOTE | 2017-12-20 04:00 | NUR ---
PATIENT UP TO THE RESTROOM WITH 1PSBA AND FWW. PATIENT VOIDED 225MLS AND HAD A WET ATTENDS WHICH WAS CHANGED. PATIENT WT OBTAINED ON HIS WAY BACK TO BED-209.1LBS. PATIENT'S SKIN TEAR FROM HIM SCRATCHING HIS LFA EARLIER IN THE SHIFT WAS REDRESSED WITH NON-ADHERENT DRESSING AND COBAN. PATIENT REMAINS ON 2L/NC AND SATTING 97%. VS STABLE. PATIENT DRANK 100MLS OF WATER AND WAS GIVEN A WARM BLANKET AND HE IS NOW RESTING QUIETLY, EYES CLOSED, RESPIRATIONS EVEN. PATIENT SAID HE WAS NOT HAVING ANY PAIN.CALL LIGHT IN REACH AND PATIENT IS VISIBLE FROM THE DESK. BED ALARM ON.
--- NOTE | 2017-12-20 07:00 | NUR ---
REPORT GIVEN TO DAYSHIFT RN. PATIENT HAS BEEN UP X4 TONIGHT TO THE BATHROOM AND VOIDED WITH 1PSBA AND FWW. PATIENT CONTINUES TO HAVE CRACKLES IN THE BILAT LUNG BASES AND CLEAR IN THE UPPER LOBES. PATIENT IS ON 2L/NC AND CONTINUES TO SAT GREATER THAN 90%. PATIENT NEEDED TO BE MONITORED A LITTLE CLOSER FOR THE FIRST FEW HOURS OF THE SHIFT ,BUT DID FINE THE REST OF THE NIGHT AFTER HIS INITIAL REACTION OF WANTING TO LEAVE. IV FLUSHES WELL. PATIENT CONTINUES TO REST AT THIS TIME, EYES CLOSED, RESPIRATIONS EVEN AND REGULAR. CALL LIGHT IN REACH AND PATIENT IS VISIBLE FROM THE NURSING DESK.
--- NOTE | 2017-12-20 07:00 | NUR ---
BEDSIDE HANDOFF REPORT RECEIVED FROM RESIDENTIAL INTERIOR DESIGNER RN. PT SLEEPING, LEFT UNDISTURBED, BED ALARM ON.
--- NOTE | 2017-12-20 08:45 | NUR ---
SPOKE WITH MARLENI AT [facility] [place]. SHE STATES SHE DID GET CLINICALS SUNDAY AND THEY WERE ANTICIPATING ADMITTING TODAY. SHE IS REQUESTING UPDATED NOTES. I DISCUSSED THAT DR GUPTA HAS DISCHARGE ORDERS FINISHED AND I CAN SEND THOSE ALSO. SHE REQUESTS ALL TO BE SENT BY EMAIL TO [email or web address]
[2017-12-20] MEDS ORDERED: POTASSIUM CHLO10 MEQ PO ×2 (08:58→09:02)
[2017-12-20] MEDS ORDERED: TORSEMIDE20 MG PO (08:58)
--- NOTE | 2017-12-20 09:00 | NUR ---
DISCHARGE TO FACILITY ORDERS, PASSR AND UPDATED NOTES EMAILED TO [email or web address] REQUESTED IN A SECURE EMAIL.
--- NOTE | 2017-12-20 09:15 | NUR ---
PT SITTING IN CHAIR. PT WEANED TO 1L NC, LUNG SOUNDS CONTINUES TO HAVE CRACKLES ON BILATERAL BASES, IMPROVED FROM YESTERDAY. PT TOELRATNG REGULAR DIET, DENIES NAUSEA, BOWEL TONES ACTIVE. PT WITH EDEMA TO BLE, 1-2+ CONCENTRATED AROUND ANKLES. PT GIVEN IV LASIX PER ORDER. PT CONTINUES TO BE CONFUSED AT BASELINE, CHAIR ALARM IN PLACE. PLAN FOR DISCHARGE TODAY. PT DENIES OTHER NEEDS AT THIS TIME.
--- NOTE | 2017-12-20 09:30 | NUR ---
SPOKE WITH GRANDDAUGHTER MING [phone]. SHE IS ASKING IF WE CAN LOOK FOR A FACILITY IN THE [place], [place] AREA. DISCUSSED WITH HER THAT ORDERS WERE WRITTEN AND SENT THIS MORNING ON THE FACILITY THEY AGREED TO YESTERDAY WITH DIRECTOR SECURITY RISK MANAGEMENT, ERIC RENEE. SHE STATES SHE WAS JUST WONDERING ABOUT GETTING HIM CLOSER TO THE ASSISTED LIVING PLACE HE WILL MOVE TO AFTER REHAB. I EXPLAINED THEY CAN SPEAK WITH [facility] [place] THE [place] AND OTHER OPTIONS IF THAT IS WHAT THEY WISH DOWN THE ROAD. SHE STATES "OH IT'S FINE. WE WILL JUST GO WITH THE ONE IN [place]". WE DISCUSSED OPTIONS FOR TRANSFER, SHE ASKED ABOUT AMBULANCE TRANSFER. I EXPLAINED I CAN'T GUARANTEE MEDICARE WOULD COVER THAT IT IS NOT MEDICALLY NECESSARY. WE DISCUSSED THAT I UNDERSTOOD FAMILY WAS AVAILABLE TO TRANSFER HIM. SHE STATED "OH YES, WE CAN". SHE STATED SHE WOULD LEAVE IN ABOUT 2 HOURS. WE AGREED THEN TO HAVE PATIENT READY FOR HER AT 1PM.
--- NOTE | 2017-12-20 10:21 | NUR ---
ATTEMPTED ROOM AIR CHALLENGE, PT DESATS TO 83% ON ROOM AIR AT REST, REQUIRED 2L NC TO RECOVER, THEN WEANED TO 1L NC, O2 SATS 91% ON 1L NC. PT SITTIGN IN CHAIR. CHAIR ALARM ON.
--- NOTE | 2017-12-20 10:45 | NUR ---
SPOKE WITH MARLENI CADENA [facility] AT THE [place] [phone]. SHE STATES THEY RECEIVED ORDERS AND ARE READY TO ACCEPT PATIENT. WE DISCUSSED THAT FAMILY WAS PLANNING ON LEAVING HERE AT 1PM. SHE STATED WE COULD CALL NURSE REPORT TO THIS NUMBER TO CHARGE NURSE AT DISCHARGE. WE ALSO DISCUSSED PORTABLE OXYGEN NEED, SHE STATES TO SEND HIM WITH A LINCARE TANK THEY USE LINCARE AT THE FACILITY.
--- NOTE | 2017-12-20 11:44 | NUR ---
HELPED GET PATIENT DRESSED AND DID HIS DISCHARGE VITALS.
--- NOTE | 2017-12-20 12:17 | NUR ---
PT SITTING IN CHAIR, WITH VISITOR IN RM. COGNITIVE ABILITIES SEEM TO DIMINISH EVEN MORE. PT HAD DIFFICULTY AGAIN TODAY PROCESSING WHO I AM, EVEN WITH VISITORS HELP. PT IS PLEASANT THOUGH, EXTENDED A BLESSING. JUST AFTER I LEFT, HIS FAMILY CAME TO DC PT.
--- NOTE | 2017-12-20 12:21 | NUR ---
PATIENTS FAMILY ARRIVED AT 1130 AND WANTED TO TAKE PATIENT EARLY. MING GRANDDAUGHTER STATED SHE GOT HERE SOONER THAN EXPECTED. CHEMICAL STRENGTH TESTER, APOLONIA CALLED [facility] [place] THE [place] TO VERIFY PATIENT COULD ARRIVE EARLIER THAN SCHEDULED. THEY WERE FINE WITH THIS AND NURSE TO NURSE REPORT WAS GIVEN BY ALLY SMITH.
--- NOTE | 2017-12-20 16:45 | NUR ---
AFTER PATIENT GOT DONE IN THE BATHROOM WE WALKED HIM BACK TO HIS CHAIR. THAN WE GOT HIM DRESSED TO GO WITH FAMILY. AROUND [id number] THIS MORNING.
== END 2017-12-20 11:45 | DRG 291 ==
LOC: ED 15:53 → MS 19:04
PROVIDERS: ADMIT Internal Medicine
DX: I50.33 Acute on chronic diastolic (congestive) heart failure (principal); J96.01 Acute respiratory failure with hypoxia; I08.0 Rheumatic disorders of both mitral and aortic valves; I48.2 Chronic atrial fibrillation; N40.0 Benign prostatic hyperplasia without lower urinary tract symptoms; E78.5 Hyperlipidemia, unspecified; G30.9 Alzheimer's disease, unspecified; F02.80 Dementia in other diseases classified elsewhere, unspecified severity, without behavioral disturbance, psychotic disturbance, mood disturbance, and anxiety; Z66 Do not resuscitate; Z87.891 Personal history of nicotine dependence; Z88.0 Allergy status to penicillin; Z79.01 Long term (current) use of anticoagulants; Z79.899 Other long term (current) drug therapy
CPT/HCPCS: 36415; 71046; 80048; 80053; 83735; 83880; 84484; 85025; 85610; 85730; 93005; 93010; 93306; 94760; 94762; J1120; J1630; J2370; J3010; J7120